=== PATIENT | female | born 1970 | race American Indian/Alaskan Native ===

== ENCOUNTER 2024-01-27 08:11 | Outpatient (CLI) | payer BC, SELFPAY ==
--- NOTE | 2024-01-27 | ECHO_ITS ---
Patient Info Name: Katie Maciel Age: 53 years : 1970 Gender: Female Ht: 64 in Wt: 125 lbs BSA: 1.60 m2 HR: 83 bpm BP: 135 / 85 mmHg Heart Rhythm: Sinus Rhythm Technical Quality: Poor Exam Date: 01/27/2024 9:04 AM Exam Location: Echo Lab Patient Status: Outpatient Admit Date: 01/27/2024 Staff Ordering Physician: ThomasClemente MD Documentation Specialist: Park Cruz RDCS Attending Provider: ThomasClemente MD Exam Type: CA echo doppler color flow Study Info Indications R55 - Syncope and collapse Complete two-dimensional, color flow and Doppler transthoracic echocardiogram is performed. Reason for Poor Study: poor patient cooperation Summary 1. Complete two-dimensional, color flow and Doppler transthoracic echocardiogram is performed. 2. Left ventricular chamber dimension is normal. 3. Left ventricular systolic function is normal, estimated at 60-65%. 4. The left ventricular diastolic function is normal. 5. Right ventricular systolic function is normal. 6. No significant valvular disease. Left Ventricle Left ventricular chamber dimension is normal. Left ventricular systolic function is normal, estimated at 60-65%. There is no increased left ventricular wall thickness. The left ventricular diastolic function is normal. Right Ventricle Right ventricular chamber dimension is normal. Right ventricular systolic function is normal. Left Atria Left atrial chamber dimension is normal. Right Atria Right atrial chamber dimension is normal. Atrial Septum Intact interatrial septum visualized by color flow imaging. Aortic Valve The aortic valve is trileaflet. There is mild aortic valve sclerosis. There is no aortic valve stenosis. There is no aortic valve regurgitation. Pulmonic Valve The pulmonic valve is not well visualized. There is no pulmonic regurgitation. Mitral Valve The mitral valve has normal leaflets. There is trace mitral valve regurgitation. Tricuspid Valve The tricuspid valve leaflets are normal. There is trace tricuspid valve regurgitation. Pericardium/Pleural There is no pericardial effusion. Inferior Vena Cava Normal inferior vena cava with >50% collapse upon inspiration consistent with normal right atrial pressure, 3 mmHg. Aorta The aortic root size at the sinus of Valsalva is normal. Left Ventricular Outflow Tract Name Value Normal LVOT 2D LVOT Diameter 2.0 cm LVOT Doppler LVOT Peak Gradient 4 mmHg LVOT Mean Gradient 2 mmHg LVOT VTI 19 cm LVOT VTI/AV VTI Ratio 1.0 LVOT Stroke Volume 59 ml LVOT CO 5.0 l/min LVOT CI 3.1 l/min/m2 Pulmonic Valve Name Value Normal RVOT Doppler RVOT Peak Gradient 3 mmHg PV Doppler
--- NOTE | 2024-01-28 08:19 | WPDNEUROLOGY ---
Neurology EEG Report General Information Date of Study: 01/27/24 TEST eeg DIAGNOSIS Syncopal episode with collapse CONDITION OF RECORDING awake drowsy and sleep EEG NUMBER [id number] CLINICAL HISTORY patient reports about a month ago she was sitting and talking with a friend when she started feeling funny and then lost consciousness. Friends say as she was shaking ,she lost control of her bladder. Patient felt disoriented for a while afterwards but has been fine since then. EEG DESCRIPTION Background rhythm consists of low-voltage 11 to 13 hertz per 2nd alpha admixed with low-voltage 15 to 18 hertz per 2nd beta and poor luke posterior gradients. During drowsiness low-voltage beta activity seen with multiple muscle artifacts. Beta activity seen admixed with intermittent low-voltage theta activity evolving into bilateral symmetrical sleep activity. Photic stimulation produced normal drive. Hyperventilation not done. Non paroxysmal. Nonfocal. Non lateralizing. IMPRESSION No significant abnormalities noted in this tracing although normal EEG does not rule out the possibility of seizure. Clinical correlation recommended
== END 2024-01-27 08:12 | disposition home or self-care (01) ==
PROVIDERS: PCP Internal Medicine; Visit Provider Internal Medicine
DX: R55 Syncope and collapse (principal)
CPT/HCPCS: 93306; 95816